=== PATIENT | female | born 1990 | race African-American/Black ===

== ENCOUNTER 2017-01-17 14:51 | Emergency (ER) | payer BC, OTHER ==
[2017-01-17 14:57] VITALS: BP 140/97; PULSE 84; TEMP 97.8; BMI 28.1
[2017-01-17] MEDS ORDERED: SODIUM CHLORIDE 1,000 ML IV STA (16:10)
[2017-01-17] MEDS ORDERED: METOCLOPRAMIDE HCL INJECTION 10 MG/2 ML VIAL IVPB ONE (16:10)
[2017-01-17] MEDS ORDERED: KETOROLAC TROMETHAMINE 30 MG/1 ML VIAL IVPUSH ONE (16:10)
--- NOTE | 2017-01-17 16:10 | PDOC ---
History of Present Illness - General Chief Complaint: Headache Stated Complaint: HEADACHE Time Seen by Provider: 01/17/17 15:55 History Source: Patient Exam Limitations: No Limitations - History of Present Illness Initial Comments: 01/17/17 16:12 26-year-old female presents to the ED with complaints of right parietal headache which she describes a pressure-like causing her to have nausea and lightheadedness since awakening this morning. Patient states took Excedrin upon onset which she states did not alleviate her symptoms and as the day went on symptoms worsen. Patient denies vomiting, visual changes, neck pain, fever or chills. Patient states has had headaches in the past and has become more frequent but denies to this severity. Timing/Duration: reports: constant, increasing Severity: Yes: moderate Associated Symptoms: reports: vision changes. denies: denies symptoms Past History - Travel Traveled outside of the country in the last 30 days: No Close contact w/someone who was outside of country & ill: No - Past Medical History Allergies/Adverse Reactions: Allergies Allergy/AdvReac Type Severity Reaction Status Date / Time No Known Allergies Allergy Verified 01/17/17 14:54 Home Medications: Ambulatory Orders Montelukast Na [Singulair -] 10 mg PO HS 01/17/17 Other medical history: lupus - Psycho/Social/Smoking Cessation Hx Anxiety: No Suicidal Ideation: No Smoking History: Never smoked Substance Use Type: None Patient Lives Alone: No Lives with/in: parents Neuro Specific PMHX - Complaint Specific PMHX Migraine: No Review of Systems - Review of Systems Able to Perform ROS?: Yes Constitutional: No: Symptoms Reported HEENTM: No: Symptoms Reported Respiratory: No: Symptoms reported Cardiac (ROS): Yes: Lightheadedness ABD/GI: Yes: Nausea : No: Symptoms Reported Musculoskeletal: No: Symptoms Reported Integumentary: No: Symptoms Reported Neurological: Yes: Headache Endocrine: No: Symptoms Reported Hematologic/Lymphatic: No: Symptoms Reported *Physical Exam - Vital Signs Last Vital Signs Temp Pulse Resp BP Pulse Ox 97.8 F 84 18 140/97 100 01/17/17 14:54 01/17/17 14:54 01/17/17 14:54 01/17/17 14:54 01/17/17 14:54 - Physical Exam General Appearance: Yes: Nourished, Appropriately Dressed. No: Apparent Distress HEENT: positive: EOMI, SEEMA. negative: Pale Conjunctivae Neck: positive: Supple Respiratory/Chest: positive: Lungs Clear, Normal Breath Sounds. negative: Respiratory Distress, Accessory Muscle Use Cardiovascular: positive: Regular Rhythm, Regular Rate. negative: Murmur Gastrointestinal/Abdominal: positive: Soft. negative: Tenderness Musculoskeletal: negative: CVA Tenderness Extremity: positive: Normal Capillary Refill. negative: Pedal Edema Integumentary: positive: Normal Color, Warm, Moist Neurologic: positive: Normal Mood/Affect, Motor Strength 12/12 ED Treatment Course - ADDITIONAL ORDERS Additional order review: Laboratory Results 01/17/17 15:05 Urine HCG, Qual Negative Medical Decision Making - Medical Decision Making 01/17/17 16:16 Patient with constant throbbing pressure-like pain to the right parietal region since this morning, relieved with Excedrin. Patient states no history of migraines but states headaches have been worsening severity over the past few years and has failed to follow-up with her PCP because symptoms normally resolve with [id number] medication. Patient on exam had no acute neuro findings. Patient concerning for intracranial pathology ordered head CT along with IV Reglan, Toradol and IV fluids. 01/17/17 17:50 Patient states feeling better after receiving the medication. Head CT shows no acute findings and otherwise unremarkable. Patient will be discharged home with recommendations to follow up with neurology and a prescription for fioricet. *DC/Admit/Observation/Transfer Diagnosis at time of Disposition: Migraine headache Qualifiers: Migraine type: unspecified Status migrainosus presence: without status migrainosus Intractability: intractable Qualified Code(s): G43.919 - Migraine, unspecified, intractable, without status migrainosus - Discharge Dispostion Disposition: HOME Condition at time of disposition: Improved - Referrals Referrals: Jack Price [Primary Care Provider] - Randy Pickens MD [Staff Physician] - - Patient Instructions Printed Discharge Instructions: DI for Migraine Additional Instructions: Please take medication as prescribed as needed. Please drink plenty of fluids. Please follow-up with referred neurologist.
[2017-01-17] MEDS ORDERED: METOCLOPRAMIDE HCL INJECTION 10 MG/2 ML VIAL ONE (16:18)
[2017-01-17] MEDS ORDERED: KETOROLAC TROMETHAMINE 30 MG/1 ML VIAL ONE (16:18)
== END 2017-01-17 18:02 | disposition home or self-care (01) ==
LOC: JER 14:51
PROC: 3E0333Z Introduction of Anti-inflammatory into Peripheral Vein, Percutaneous Approach (ICD-10-PCS; principal; 2017-01-17)
PROC: 3E033GC Introduction of Other Therapeutic Substance into Peripheral Vein, Percutaneous Approach (ICD-10-PCS; 2017-01-17)
PROC: 3E0337Z Introduction of Electrolytic and Water Balance Substance into Peripheral Vein, Percutaneous Approach (ICD-10-PCS; 2017-01-17)
DX: G43.919 Migraine, unspecified, intractable, without status migrainosus (principal)
CPT/HCPCS: 70450-TC; 84703; 99282-25

== ENCOUNTER 2022-02-22 15:27 | Emergency (ER) | payer OTHER ==
[2022-02-22 15:45] VITALS: BP 154/100; PULSE 81; TEMP 98.3; BMI 29.7
[2022-02-22] MEDS ORDERED: ACETAMINOPHEN 1000 MG/100 ML BAG IVPB ONE (16:59)
[2022-02-22] MEDS ORDERED: SODIUM CHLORIDE 0.9% 500 ML INFUS.BAG IV ONE (16:59)
[2022-02-22] MEDS ORDERED: METOCLOPRAMIDE HCL INJECTION 10 MG/2 ML VIAL IVPUSH ONE (17:00)
[2022-02-22] MEDS ORDERED: ACETAMINOPHEN INJECTION 100 ML IVPB ONE (17:22)
[2022-02-22] MEDS ORDERED: METOCLOPRAMIDE HCL INJECTION 10 MG/2 ML VIAL ONE (17:22)
[2022-02-22] MEDS ORDERED: KETOROLAC TROMETHAMINE 30 MG/1 ML VIAL IVPUSH ONE (18:42)
[2022-02-22] MEDS ORDERED: KETOROLAC TROMETHAMINE 30 MG/1 ML VIAL ONE (18:48)
== END 2022-02-22 19:10 | disposition home or self-care (01) ==
LOC: JER 15:27
PROC: 3E0333Z Introduction of Anti-inflammatory into Peripheral Vein, Percutaneous Approach (ICD-10-PCS; principal; 2022-02-22)
PROC: 3E0333Z Introduction of Anti-inflammatory into Peripheral Vein, Percutaneous Approach (ICD-10-PCS; 2022-02-22)
PROC: 3E033GC Introduction of Other Therapeutic Substance into Peripheral Vein, Percutaneous Approach (ICD-10-PCS; 2022-02-22)
DX: R51.9 Headache, unspecified (principal)
CPT/HCPCS: 99284-25